=== PATIENT | female | born 1945 | race Caucasian/White ===

== ENCOUNTER 2020-05-05 12:48 | Outpatient (RCR) | payer OTHER ==
[~2020-05-05 12:48] MED LIST: ADVIL200 MG PO; ASPIRIN 81M81 MG/TA2 PO; COREG 25MG25 MG/TAB PO; FLOMAX 0.40.4 MG/CAP PO; HYZAAR 12.5 MG-1 TAB PO; LIPITOR 10MG10 MG PO; NO HOME MEDICATIONS; NORCO 325 MG-51 TAB PO; ZOFRAN ODT4 MG PO
== END 2020-08-03 | disposition home or self-care (01) ==
LOC: WSOH
DX: M54.2 Cervicalgia (principal); E11.9 Type 2 diabetes mellitus without complications; I10 Essential (primary) hypertension; Z87.59 Personal history of other complications of pregnancy, childbirth and the puerperium; Y99.0 Civilian activity done for income or pay